=== PATIENT | male | born 1950 | race Caucasian/White ===

== ENCOUNTER 2020-11-20 10:11 | Emergency (ER) | payer MEDICARE, OTHER ==
[2020-11-20 10:29] VITALS: BP 120/69
[2020-11-20] MEDS ORDERED: BUFFERED LIDOCAINE 10 ML SYRINGE ONE (10:51)
--- NOTE | 2020-11-20 11:10 | ED Physician Documentation ---
PD HPI UPPER EXT INJURY - Stated complaint Stated Complaint: LAC RT THUMB - Chief complaint Chief Complaint: Laceration - History obtained from History obtained from: Patient - History of Present Illness Location: Right, Finger (thumb) Type of injury: Laceration Where injury occurred: Home Timing - onset: Today Timing - duration: Minutes Timing - details: Abrupt onset, Still present Improved by: Rest, Dressing Worsened by: Moving, Palpating Associated symptoms: No: Weakness, Numbness, Tingling Contributing factors: No: Anticoagulated Similar symptoms before: Diagnosis (laceration) Recently seen: Not recently seen - Additonal information Additional information: Previous well 70-year-old male who is up-to-date on his tetanus was using a new fillet knife when he delayed part of his right thumb. He was not able to control bleeding even with direct pressure and he has come to the emergency department now with his finger bandaged heavily and oozing. Review of Systems Constitutional: denies: Fever Ears: denies: Ear pain Nose: denies: Congestion Respiratory: denies: Cough GI: denies: Vomiting Skin: reports: Laceration (s) PD PAST MEDICAL HISTORY - Allergies Allergies/Adverse Reactions: Allergies Allergy/AdvReac Type Severity Reaction Status Date / Time No Known Drug Allergies Allergy Verified 11/20/20 10:29 PD ED PE NORMAL - Vitals Vital signs reviewed: Yes (Normal) - General General: Alert and oriented X 3, No acute distress, Well developed/nourished - HEENT HEENT: Atraumatic, PERRL, EOMI - Respiratory Respiratory: No respiratory distress - Derm Derm: Normal color, Warm and dry, No rash - Extremities Extremities: No deformity, No edema, Other (There is a 1 cm x 2 cm give of skin off of the radial aspect of the left the right thumb. This does not involve deeper structures there is bleeding from this where it penetrates the dermis entirely. Distal neurovascular components are intact.) Results - Vitals Vitals: Vital Signs - 24 hr 11/20/20 10:26 Temperature 35.9 C L Heart Rate 78 Respiratory 16 Rate Blood Pressure 120/69 O2 Saturation 97 Oxygen O2 Source Room air Procedures - Laceration (location) Right thumb Length in cm: 2 Wound type: Curved, Into subcut fat, Clean Neurovascular status: Sensory intact, Motor intact, Vascular intact Anesthesia: Lidocaine 1%, With bicarb Wound preparation: Hibiclens, Irrigated copiously NS, Wound explored, To the base Skin layer closure: Nylon, Interrupted, Size #-0 - enter number, Sutures - enter # (4) Other: Patient tolerated well, No complications, Neurovascular intact, Dressing applied, Tetanus UTD PD MEDICAL DECISION MAKING - ED course Complexity details: considered differential, d/w patient ED course: 70-year-old male with a scab of skin off the radial aspect of the right thumb has deep enough laceration that conservative treatment is not working secondary to continued bleeding. The wound is closed with 4-0 nylon. Departure - Departure Disposition: 01 Home, Self Care Clinical Impression: Laceration of thumb Qualifiers: Encounter type: initial encounter Damage to nail status: without damage Foreign body presence: without foreign body Laterality: right Qualified Code(s): S61.011A - Laceration without foreign body of right thumb without damage to nail, initial encounter Condition: Stable Instructions: ED Laceration Hand Follow-Up: Your, doctor [Other] Comments: Sutures will need to be removed in 10 days.
== END 2020-11-20 11:48 | disposition home or self-care (01) ==
LOC: ED 10:11
DX: S61.011A Laceration without foreign body of right thumb without damage to nail, initial encounter (principal); W26.0XXA Contact with knife, initial encounter; Y92.009 Unspecified place in unspecified non-institutional (private) residence as the place of occurrence of the external cause
CPT/HCPCS: 12001; 99282; 99283